=== PATIENT | male | born 1960 | race African-American/Black ===

== ENCOUNTER 2025-07-07 14:10 | Inpatient (IN) | payer OTHER, SELFPAY ==
[2025-07-07] VITALS (9 sets, daily range): BP systolic 107–136; BP diastolic 65–87; BMI 21.5; BMI 21.2
--- NOTE | 2025-07-07 10:32 | ED.GENMED ---
History of Present Illness
General
Chief Complaint: Breathing Problem
Source: patient and family
Exam Limitations: none
Time Seen by Provider: 07/07/25 10:16
Nursing documentation reviewed up to this point in time: agreed with
History of Present Illness
History of Present Illness:
Patient very pleasant 65-year-old Afro-[place] male suffers from sickle cell disease recently moved to the area from [place] he is accompanied by his brother had about a week of cough fatigue fever decreased p.o. intake some nausea shortness of
breath, suffers from congestive heart failure as well,
Past History
Past History
ED Past Medical History: CHF and Other (Sickle cell disease)
Social History
Tobacco: Non-smoker
Alcohol: None
Personal: Single
Living: alone
Employment: Retired
Phy Exam
Physical Exam
Physical Exam:
Physical Exam
General: Ill-appearing male with fever
Neck: Dry lips flat neck veins
Heart: Tachycardic
Lungs: Crackles bilateral
Abdomen: Nontender
Neuro: alert and oriented. no focal neurological deficits
Skin: no rash
Psychiatric: well kept. interactive and cooperative
Extremities: Asymmetric swelling right greater than left
Scores
Heart Failure Risk
Heart Failure Risk Score: Not Applicable
Sepsis
Sepsis Screening
Sepsis Assessment: Sepsis
Sepsis Screen
Sepsis Screen: Sepsis
Date: 07/07/25
Time: 13:02
Course
Orders/Labs/Results
Orders:
Orders
07/07/25 10:10
Electrocardiogram (*1) Urgent
Reason for Study: Tachycardia
EKG- Treatment ONCE
07/07/25 10:17
NT-proBNP Urgent
Comment: ADD
07/07/25 10:23
COVID-19 Antigen Urgent
Source: Nasal Swab
Influenza A+B Rapid Molecular Urgent
ANGELA Source: Nasal Swab
Specimen Description:
07/07/25 10:27
CR Chest Portable - 1 View Urgent
Comment:
Reason For Exam: fever sepsis sickle cell
Reason Study Needs to be Portable: Patient Unstable
07/07/25 10:28
Acetaminophen [Tylenol] 1,000 mg PO NOW STA
CefTRIAXone [Rocephin] 1,000 mg IV NOW STA
O2 Therapy [RESP] Urgent
Titrate/Wean O2 to maintain O2 sat greater than (%): 96
07/07/25 10:32
0.9% Sodium Chloride 1000 ml [Nss] 1,000 ml IV BOLUS
07/07/25 10:45
Add On- LAB Urgent
Tests Added?: Reticulocyte
07/07/25 10:47
Complete Blood Count/With Diff Urgent
Comprehensive Metabolic Panel Urgent
Reticulocyte Count Urgent
Comment: ADD
Blood Culture Q30M
ANGELA Source: Blood/Venous
Specimen Description:
07/07/25 11:03
Blood Culture Q30M
ANGELA Source: Blood/Venous
Specimen Description:
07/07/25 11:05
Add On- LAB Urgent
Tests Added?: pBNP
07/07/25 11:06
Urinalysis Reflex To Culture Urgent
Date Specimen was Collected: 07/07/25
Time Specimen was Collected: 11:04
Urine Microscopic Reflex Cult Urgent
07/07/25 11:47
US Periph Venous LOWER Ext RT Urgent
Comment:
Reason For Exam: swelling
07/07/25 12:32
Admit/Transfer Patient As Directed
Co-Sign Provider:
Level of Care: Inpatient admission
Assign to:: Telemetry
Physician / Group: Hospitalists
Diagnosis: CHF
Reason for Telemetry: Acute Heart Failure
Date to Stop Telemetry: 07/10/25
Time to Stop Telemetry: 11:00
Reason for Hospitalization: Congestive Heart Failure
Expected length of stay greater than two midnights?: Yes
ELOS- Estimated Length of Stay in days: 4
I certify the patient meets the requirements for IP care: Yes
PRN Pain Medication Management As Directed
May give lesser potent ordered pain med per pt: Yes
preference::
Protocol:: Medication orders for pain may be administered in a
manner that supports deferring to patient preference
when the pt is:
- Requesting an ordered lesser potent pain medication.
Least to most potent pain medications are defined
as: acetaminophen < NSAID < tramadol < opioids
(morphine, oxycodone, hydromorphone).
- Requesting a lesser dose of the same medication IF
ORDERED.
- Requesting a less intrusive route of administration
if both routes are prescribed by the provider (PO <
IV).
07/07/25 12:38
Code Status As Directed
Resuscitation Status: Full Code
07/10/25 11:00
DC Protocol for Telemetry ONCE
Abnormal Lab Results
07/07/25 07/07/25
10:47 11:06
RBC 2.58 L 10^6/uL
(4.70-6.10)
Hgb 8.7 L g/dL
(13.0-18.0)
Hct 24.0 L %
(39.0-52.0)
MCH 33.7 H pg
(27.0-31.0)
RDW 23.3 H %
(11.5-14.5)
Abs Immat Gran (auto) 0.1 H 10^3/uL
(0-0.05)
Absolute Neuts (auto) 6.8 H 10^3/uL
(1.4-6.5)
Absolute Lymphs (auto) 0.6 L 10^3/uL
(1.2-3.4)
Immature Gran % 0.6 H %
(0-0.5)
Neutrophils % 86.9 H %
(42.2-75.2)
Lymphocytes % 7.5 L %
(20.5-51.1)
Carbon Dioxide 20 L mmol/L
(22-30)
Total Bilirubin 5.8 H mg/dl
(0.2-1.3)
Total Protein 8.8 H g/dl
(6.3-8.2)
Ur Occult Blood Reflex 3+ A
(Negative)
Urine RBC 3-6 A /HPF
(0-2)
Urine Albumin (Reflex) 3+ A
(Neg - Trace)
07/07/25 10:47
07/07/25 10:47
Vital Signs
Initial and Last Documented VS:
Initial Vital Signs
Temp Pulse Resp BP Pulse Ox
103.2 F H 130 18 129/84 90
07/07/25 10:05 07/07/25 10:05 07/07/25 10:05 07/07/25 10:05 07/07/25 10:05
Last Documented Vital Signs
Temp Pulse Resp BP Pulse Ox
101.8 F H 124 33 120/78 92
07/07/25 11:44 07/07/25 12:00 07/07/25 12:00 07/07/25 12:00 07/07/25 12:00
MDM/Problems Addressed
Differential Diagnosis Includes:
Pneumonia acute chest viral syndrome influenza COVID bacteremia
MDM/Problems Addressed:
Fever shortness of breath
Chronic conditions affecting care:
Sickle cell heart failure
Acute Exacerbation and/or Progression of Chronic Illness:
Sickle cell heart failure
*Radiology
Radiology exam reviewed: preliminary read by ED provider and radiology read reviewed
*Pulse Oximetry
SaO2: 88
Oxygen Mode of Delivery: Room air
Patient hypoxic: yes
*EKG
Interpreted by ED Provider?: Yes
Interpretation: abnormal
Comparison EKG: no comparison EKG present
Heart Rate: 140
Rate: tachycardiac
Rhythm: sinus
Ischemia: non-specific ST changes
*Junior Systems Administrator Interpretation
Rate: tachycardiac
Interpretation: abnormal
Heart Rate: 140
Rhythm: sinus
*Critical Care Note
Total Time (30-74mins, 75-104mins- exclusive of procedures): 30
Update Note
Update Note:
1130 update patient looks better chest x-ray noted suspect this is infectious with a high fever concomitant heart failure is possible, does have asymmetric swelling of lower extremities, will check Doppler
Message sent to hospitalist will require admission
ED Attending Note
-
Portions of this chart may have been created with voice recognition software.� Occasional wrong word or��sound alike� substitutions may have occurred due to the inherent limitations of voice recognition software.
Discharge Plan
Departure
Patient Disposition: Admit
Date of Disposition: 07/07/25
Time of Disposition: 11:55
Admit to: Telemetry
Presentation/result/management discussed w/ accepting MD/DO: Hospitalist
Patient with high blood pressure during this ER visit?: No
Condition: Fair
Covid-19: Negative COVID-19
Discharge Problem:
Sepsis, Sickle cell anemia
Prescriptions:
No Action
spironolactone 25 mg Tablet
25 mg PO DAILY
ascorbic acid (vitamin C) [Vitamin C] 500 mg Tablet
500 mg PO DAILY
tamsulosin [Flomax] 0.4 mg Capsule
0.4 mg PO QPM
levothyroxine [Synthroid] 125 mcg Tablet
125 mcg PO DAILY
furosemide [Lasix] 20 mg Tablet
20 mg PO DAILY
cholecalciferol (vitamin D3) [Vitamin D3] 25 mcg (1,000 unit) Tablet
25 mcg PO DAILY
ferrous sulfate 324 mg (65 mg iron) Tablet,Delayed Release (Dr/Ec)
324 mg PO DAILY
Referrals:
NONE,* [Family Provider, Internal Medicine]
Interventions
Interventions:
*Risk Screen - Suicide Last Done: 07/07/25 10:05
*General Assessment Last Done: 07/07/25 10:05
*Neglect/Abuse Screening Last Done: 07/07/25 10:05
*ED COVID-19 Vaccine History Last Done: 07/07/25 10:20
ED- Cardiac Assessment Last Done: 07/07/25 11:43
ED- Pulmonary Assessment Last Done: 07/07/25 11:43
Discharge Date and Time
Print Language: TURKISH
[2025-07-07] MEDS: TYLENOL 1000 MG PO (10:35)
[2025-07-07 10:46] LABS: COVID-19 Antigen Negative (Negative)
[2025-07-07] MEDS: NSS 1000 IV (10:50)
[2025-07-07] MEDS: ROCEPHIN 1000 MG IV (11:08)
[2025-07-07 11:16] LABS: Urine Character Clear (Clear)
[2025-07-07 11:23] LABS: Hematocrit 24.0 % (39.0-52.0); Hemoglobin 8.7 g/dL (13.0-18.0); Mean Corp Hgb Conc. 36.3 g/dL (33.0-37.0); Mean Corpuscular Volume 93.0 fL (80.0-94.0); Nucleated Red Blood Cells % 3.8 % (-); Platelet Count 259 10^3/uL (130-400); Red Cell Dist. Width 23.3 % (11.5-14.5)
[2025-07-07 11:42] LABS: ALT (SGPT) 22 U/L (0-50); AST (SGOT) 45 U/L (17-59); Albumin 4.1 g/dl (3.5-5.0); Alkaline Phosphatase 104 U/L (38-126); Blood Urea Nitrogen 16 mg/dl (9-20); Calcium 8.5 mg/dl (8.4-10.2); Carbon Dioxide 20 mmol/L (22-30); Chloride 107 mmol/L (98-107); Estimated Creatinine Clearance 75 ml/min; Glucose 89 mg/dl (70-99); Potassium 5.1 mmol/L (3.5-5.1); Sodium 135 mmol/L (135-145); Total Protein 8.8 g/dl (6.3-8.2); eGFR > 60.00
[2025-07-07 12:14] LABS: Urine White Cell 0-2 /HPF (0-5)
[2025-07-07 13:31] LABS: Anisocytosis 2+; Hypochromasia 2+; Macrocytosis 1+; Normal RBC Morphology No; Target Cells 1+
[2025-07-07 13:32] LABS: Ovalocytes 2+; Sickled Red Blood Cells 1+
[2025-07-07 14:02] LABS: Reticulocyte Count 12.7 % (0.4-2.8)
--- NOTE | 2025-07-07 14:46 | EDRN ---
Report tubed 406-1.
--- NOTE | 2025-07-07 14:55 | HPS.HSE ---
Addendum entered and electronically signed by Rosas Haywood MD 07/07/25 21:57:
Attending Addendum-
I performed a history and physical exam of the patient and discussed his management with the resident. I reviewed the resident's note and agree with the documented findings and plan of care CC/HPI- Came to ED due to worsening SOB and ZAPIEN. Patient
denies CP palps. Recently moved here from [place]. Has not established care yet. Has been having cough fatigue fevers chills urinary sxs. In ED sepstic, given IVF and abx. Full 12 point ROS reviewed and negative except as documented Exam- vitals
reviewed in EMR GEN-fatigued falling asleep HEENT scleral icterus CV RRR no MRG Lungs crackles at abses abd soft distended pos fluid wave LE +1 pitting edema B/L
Plan:
# Sepsis from CAP likely
- hold on IVF due to volume overload and stable BP
- given 1 liter in ED
- start Rocephin/Doxy
- check lactate blood cx
- check CT chest/abd/pevis
# Hyperbilirubinemia
- CTM
# Sickle Cell Disease/Crisis
- watch for acute chest syndrome - low threshold for transfusion / exchange transfusion if needed
- obtain records
- retic count elevated
- exacerbated by infection
- avoid IVF due to vol overload
- pain control
- cont O2
- start IS
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
# Acute Hypoxemic Resp failure
- r/o PE check CT
- cont supp 02 wean for sats > 92
# AE CHF
- unknown type
- check echo, check trops
- hold spironolactone
- IV lasix x 1 monitor strict I and O, daily weights
- check BMP in am
# Hypothyroid- check TSH, cont levo
# BPH- cont flomax
DVTp-lovenox
CODE-FULL
ACP
Patient consented to discuss, was alone, time spent explanation of advance directives, changes in health status, patient�s health care wishes if the patient becomes unable to make health decisions, goals of care, code status, and prognosis- 16
minutes
Time spent coordinating care, review of plan of care with resident, personally reviewed previous records in EMR, med rec, labs, radiology, d/w nursing, total time documented is exclusive of any additional time listed that was spent in advance care
planning discussion -�76 minutes
Original Note:
Family Physician
-
Family Physician: * NONE
Chief Complaint
-
Shortness of breath
History of Present Illness
Mr. Santoyo is a 65-year-old male with history of sickle cell disease, CHF, and hypothyroidism who presented to the ED with shortness of breath at rest ongoing for 1 week and worsening. He also has a chronic cough that he states has worsened in this
time period. He reports 1 episode of watery emesis last evening and intermittent nausea since then. He states that this happened once before however cannot remember when. He reports that this is different from his sickle cell crisis pain, which
he last had a month ago. He denies pain of any kind, urinary symptoms, bowel changes, chills, recent infection, or changes in medicine. He states that he recently moved from [place] via [facility] and does not have a PCP nor specialist in the area.
His POA is his brother Gregor.
Medical History
Past Medical History
Past Medical History: Reports CHF, Hypothyroidism and Other (Sickle Cell Disease)
Past Surgical History: Reports None
Social History
Tobacco: Non-smoker
Alcohol: None
Drug: None
Family History
Family History: Not pertinent
Allergies / Home Medications
Allergies reflects when Allergies were last updated in [employer].
Home Medications with original date entered in [employer]
Allergy/Medication List:
Allergies
Allergy/AdvReac Type Severity Reaction Status Date / Time
No Known Allergies Allergy Unverified 09/24/25 10:05
Home Medications
ascorbic acid (vitamin C) 500 mg tablet (Vitamin C) 500 mg PO DAILY 07/07/25
cholecalciferol (vitamin D3) 25 mcg (1,000 unit) tablet (Vitamin D3) 25 mcg PO DAILY 07/07/25
ferrous sulfate 324 mg (65 mg iron) tablet,delayed release 324 mg PO DAILY 07/07/25
furosemide 20 mg tablet (Lasix) 20 mg PO DAILY 07/07/25
levothyroxine 125 mcg tablet (Synthroid) 125 mcg PO DAILY 07/07/25
spironolactone 25 mg tablet 25 mg PO DAILY 07/07/25
tamsulosin 0.4 mg capsule (Flomax) 0.4 mg PO QPM 07/07/25
Review of Systems
-
A 12 point ROS was completed and negative except as noted: Yes
Constitutional: Reports Fever and Fatigue
Respiratory: Reports Cough and Trouble Breathing
Physical Exam
Vital Signs
Vital Signs
Temp Pulse Resp BP Pulse Ox
99.5 F 117 31 112/79 92
07/07/25 13:21 07/07/25 13:16 07/07/25 13:16 07/07/25 13:16 07/07/25 12:00
Physical Exam
General: Well Developed, Well Nourished, Respiratory Distress and Appears in Distress
HEENT: NormoCephalic, Moist mucous membranes, Atraumatic and Other (Scleral icterus)
Respiratory: Rales and Crackles
Cardiac: Tachycardia
GI: Soft, Non Tender and Distended
Musculoskeletal: Clubbing
Skin: Warm and Dry
Neuro: AO x 3
Psych: Anxious
Laboratory Results
-
07/07/25 10:47
07/07/25 10:47
Laboratory Results
Total Bilirubin 5.8 mg/dl (0.2-1.3) H 07/07/25 10:47
AST 45 U/L (17-59) 07/07/25 10:47
ALT 22 U/L (0-50) 07/07/25 10:47
Alkaline Phosphatase 104 U/L (38-126) 07/07/25 10:47
Impression/Plan
-
IMPRESSION: Mr. Santoyo is a 65-year-old male with history of sickle cell disease, CHF, and hypothyroidism who presented to the ED with shortness of breath at rest ongoing for 1 week and worsening, concerning for acute HG excarebation. His POA is his
brother Gregor. Mr. Sanotyo recently moved from [place] and has not established care in the area. In the ED, he was febrile up to 103.2F, tachycardic (130s), and tachypneic (30s). He was given 1 dose of ceftriaxone, 1 L fluid, and placed on 3L nasal
cannula (no home O2 at baseline). He was admitted to the hospitalist team for further management workup.
CXR 07/07:
Vascular markings appear prominent, most suspicious for interstitial pulmonary edema.
Peripheral vascular ultrasound 07/07:
No sonographic evidence for right lower extremity deep venous thrombosis.
PLAN:
#Shortness of breath
#Acute on chronic HF
#History of sickle cell disease
We do not have access to patient's records from [place]. CXR as above. Crackles present on exam bilaterally. proBNP 5260. Patient's history and symptoms put him at high risk of PE.
- Wean oxygen as tolerated
- Trend troponin every 6 hours x 4
- Hold home Lasix 20 mg and spironolactone 25 mg
--IV Lasix 40 mg x 1 07/07
- CT chest A/P
- Echo
#Sepsis of unknown etiology
#Vomiting
#Cough
Patient is febrile, tachycardic, tachypneic. He had 1 episode of emesis last night. Currently asymptomatic from a GI standpoint. Endorses a chronic cough that is now worse and productive. UA pertinent for albumin, some WBC, and blood otherwise
unremarkable.
- Lactate, Legionella, LFT
- Follow-up blood cultures
- COVID and flu negative
- Start IV ceftriaxone 1000 mg and doxycycline 100 mg twice daily
- CT chest A/P
#Hypothyroidism
- TSH with free T4
- Continue home levothyroxine 125 mcg
Diet: Cholesterol-lowering
CODE STATUS: Full
[2025-07-07] MEDS: LASIX 20 MG IV (16:24)
[2025-07-07 16:38] LABS: ALT (SGPT) 20 U/L (0-50); AST (SGOT) 40 U/L (17-59); Albumin 3.7 g/dl (3.5-5.0); Alkaline Phosphatase 91 U/L (38-126); Magnesium 1.8 mg/dl (1.6-2.3); Total Protein 8.1 g/dl (6.3-8.2)
[2025-07-07] MEDS: FLOMAX 0.4 MG PO (17:37)
[2025-07-07] MEDS: LOVENOX 40 MG SC (17:37)
[2025-07-07] MEDS: VIBRAMYCIN 100 MG PO (19:44)
[2025-07-07 19:46] LABS: Troponin I 0.038 ng/ml
[2025-07-07 23:24] LABS: Troponin I 0.036 ng/ml
[2025-07-08] VITALS (8 sets, daily range): BP systolic 102–121; BP diastolic 56–77; BMI 20.7
[2025-07-08 05:01] LABS: Procalcitonin 1.15 ng/ml (0.0-0.25)
[2025-07-08 05:08] LABS: Troponin I 0.032 ng/ml
[2025-07-08] MEDS: SYNTHROID 125 MCG PO (06:04)
[2025-07-08] MEDS: VITAMIN D3 (cholecalciferol) 25 MCG PO (07:51)
[2025-07-08] MEDS: VITAMIN C 500 MG PO (07:51)
[2025-07-08] MEDS: VIBRAMYCIN 100 MG PO ×2 (07:51→20:00)
[2025-07-08 08:26] LABS: ALT (SGPT) 20 U/L (0-50); AST (SGOT) 39 U/L (17-59); Albumin 3.2 g/dl (3.5-5.0); Alkaline Phosphatase 79 U/L (38-126); Blood Urea Nitrogen 17 mg/dl (9-20); Calcium 7.9 mg/dl (8.4-10.2); Carbon Dioxide 22 mmol/L (22-30); Chloride 108 mmol/L (98-107); Estimated Creatinine Clearance 80 ml/min; Glucose 93 mg/dl (70-99); Potassium 4.6 mmol/L (3.5-5.1); Sodium 135 mmol/L (135-145); Total Protein 7.5 g/dl (6.3-8.2); eGFR > 60.00
[2025-07-08 08:34] LABS: Hematocrit 21.0 % (39.0-52.0); Hemoglobin 7.7 g/dL (13.0-18.0); Mean Corp Hgb Conc. 36.7 g/dL (33.0-37.0); Mean Corpuscular Volume 92.9 fL (80.0-94.0); Nucleated Red Blood Cells % 2.4 % (-); Platelet Count 254 10^3/uL (130-400); Red Cell Dist. Width 21.9 % (11.5-14.5)
--- NOTE | 2025-07-08 09:44 | W.PN.HOSP.TC ---
Addendum entered and electronically signed by Rosas Haywood MD 07/08/25 20:49:
Attending Addendum-I saw and evaluated the patient. I reviewed the resident�s note and agree with findings and plan as documented in the resident�s note. Sub: drowsy, sleeping on entry to room but flat affect. States still SOB but improved. No abd
pain NV CP palps fevers chill. Full 12 point ROS reviewed and negative except as documented Exam- vitals reviewed in EMR GEN-fatigued HEENT scleral icterus CV RRR no MRG Lungs crackles at bases abd soft distended hepatomegaly, neg McBurney point neg
Rovsing sign LE +1 pitting edema B/L
Plan:
# Sepsis from CAP likely
- given 1 liter in ED
- cont Rocephin/Doxy
- blood cx NGTD
- CT chest/abd/pelvis- no PE, hepatomegaly, mild free fluid in paracolic gutter
# Hyperbilirubinemia
- trending down
- CT with hepatomegaly- LFT's WNL
- indirect- likely hemolyzing check LDH hptoglobin
- c/s heme
# Sickle Cell Anemia / acute on chronic anemia
- tx for HB < 8 - transfuse 1 unit prbc 07/08
- obtain prior records
- retic count elevated
- exacerbated by infection
- avoid IVF due to vol overload
- pain control
- cont O2 prn for sats < 92%
- cont IS
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
- heme c/s
# Hepatomegaly
- cheoininc LFT's WNL
- check ammonia
- f/u as OP with MRI vs US elastography and GI
- FIB-4 unreliable due to SSD
# Acute Hypoxemic Resp failure
- from CHF
- lasix IV x 1
- cont supp 02 wean for sats > 92
# AE HFmrEF, NIMI
- trops trending down
- echo 07/08-Mildly reduced systolic function. Hypokinesis of the septal hernandez. Ejection fraction is 44%
- restart spironolactone in am
- start SGLT2i during hospitalization
- additional IV lasix x 1, monitor strict I and O, daily weights
- c/s cards
- check BMP in am
# Hypothyroid- TSH-WNL, cont levothyroxine
# BPH- cont flomax
DVTp-lovenox
CODE-FULL
Time spent coordinating care, review of plan of care with resident, personally reviewed records in EMR, med rec, consults, notes, labs, radiology, d/w nursing,cards � 52 mins
Original Note:
Today's Communication/Plan
-
IV Lasix 20 mg x 1
Continue antibiotics
Follow-up echo
1u pRBC
Assessment / Plan
Assessment / Plan
Mr. Santoyo is a 65-year-old male with a history of sickle cell disease, CHF, and hypothyroidism who presented to the ED with shortness of breath at rest ongoing for 1 week and worsening, concerning acute HG exacerbation. His POA is his brother
Gregor. Mr. Santoyo recently moved from [place] and has not established care in the area.� In the ED, he was febrile up to 103.2F, tachycardic (130s), and tachypneic (30s).� He was given 1 dose of ceftriaxone, 1 L fluid, and placed on 3L nasal cannula (no
home O2 at baseline).� He was admitted to the hospitalist team for further management workup.
CXR 07/07:
Vascular markings appear prominent, most suspicious for interstitial pulmonary edema.
Peripheral vascular ultrasound 07/07:
No sonographic evidence for right lower extremity deep venous thrombosis.
Abdomen/pelvis CT with chest PE study 07/07:
Nonvisualization of the appendix. Mild free fluid in the right paracolic gutter. Acute appendicitis cannot be excluded. Clinical and laboratory correlation recommended.
Mild AP window and bilateral groin lymphadenopathy. Nonspecific.
Small right pleural effusion.
Mild cardiomegaly
Moderate hepatomegaly. Heterogeneous appearance of the liver. This may be due to the phase of enhancement. Hepatocellular disease cannot be excluded. This would better be evaluated by MRI examination indicated clinically.
Too small to characterize hypodense right renal lesion likely a benign cyst.
Mild diffuse bladder wall thickening. This can be seen with cystitis or bladder outlet obstruction.
Mild prostate hypertrophy
PLAN:
#Acute Hypoxemic Respiratory Failure
#Acute on chronic HF
We do not have access to patient records from [place]. Will attempt to obtain.� CXR as above.� Crackles present on exam bilaterally.� proBNP 5260.�
- From 3L NC to 2L NC: Wean oxygen as tolerated
- Troponins: 07/07 0.038, 0.036, 0.032, every 6 hours trending
- Hold home Lasix 20 mg and spironolactone 25 mg
--IV Lasix 20 mg x 1 07/07 --PO
--Redose again with IV Lasix 20 mg x 1 07/08
- CT C/A/P as above
- Follow-up echo
#History of sickle cell disease
- Hem consult
- Refer to residency clinic
- Hgb 7.7, transfuse 1u pRBC -- transfuse for <8
#Sepsis of unknown etiology
#Vomiting
#Cough
Patient is febrile, tachycardic, tachypneic.� He had 1 episode of emesis on 07/06.� Currently asymptomatic from a GI standpoint.� Endorses a chronic cough that is now worse and productive.� UA pertinent for albumin, some WBC, and blood otherwise
unremarkable.
- s/p 1L IVF in ED; hold for volume overload
- Procalcitonin 1.15
- Lactate, Legionella, LFT
- Follow-up blood cultures
- COVID and flu negative
- IV ceftriaxone 1000 mg and doxycycline 100 mg twice daily
- CT C/A/P as above
#Hypocalcemia
#Hypoalbuminemia
Calcium 7.9 and albumin 3.2 on 07/08. Corrected calcium 8.1.
- CTM
#Hyperbilirubinemia
- CTM
#Hypothyroidism
- TSH 2.8
- Continue home levothyroxine 125 mcg
#BPH
- Continue Flomax
Diet: Cholesterol-lowering
CODE STATUS: Full
DVT prophylaxis: Lovenox 40 mg SC
Anticipated Discharge: 24 - 48 hours
Subjective/Interval History
-
Date of Service: July 08, 2025
-This morning, he is sitting up in bed on 2L NC eating breakfast. He reports feeling much better than yesterday and being able to lie flat for longer, however still feels SOB and that he has some fluid in his belly. He denies pain and any new
symptoms. He reports he previously got all his care at the [place] in [facility] with Dr. Church.
Objective Data
-
Labs:
Laboratory Results
07/08/25
07:40
WBC 5.1
Hgb 7.7 L
Hct 21.0 L
Plt Count 254
Sodium 135
Potassium 4.6
Chloride 108 H
Carbon Dioxide 22
BUN 17
Creatinine 0.9
Glucose 93
Calcium 7.9 L
Total Bilirubin 4.0 H
AST 39
ALT 20
Alkaline Phosphatase 79
Vital Signs:
Vital Signs
Temp Pulse Resp BP Pulse Ox
98.6 F 93 18 102/73 100
07/08/25 07:54 07/08/25 07:54 07/08/25 07:54 07/08/25 07:54 07/08/25 07:54
I&O
07/07/25 07/08/25 07/09/25
06:59 06:59 06:59
Intake Total 240 / 240
Output Total 725 / 725 875 / 875
Balance -485 / -485 -875 / -875
Review of Systems
-
History Source: Patient
All other systems: Reviewed and negative
Constitutional: Reports Fatigue and Weakness
Respiratory: Reports Trouble Breathing
Physical Exam
-
General: Well Nourished, No Apparent Distress, Conversant and Appears Chronically Ill
HEENT: Normocephalic, Atraumatic and Moist Mucous Membranes
Respiratory: Crackles
Cardiac: Regular Rhythm and S1/S2
GI: Soft and Distended
Musculoskeletal: Clubbing
Skin: Warm and Dry
Neuro: AO x 3
[2025-07-08 10:41] LABS: Troponin I 0.030 ng/ml
--- NOTE | 2025-07-08 10:42 | CM ---
Addendum entered by Bety Rodriguez 07/08/25 12:56:
IA completed
Original Note:
Reviewed chart. Met with pt bedside.IMM given in Admissions 07/07/25. Lives alone in a single story Condo with no steps to the entrance or in home. BR on 1st floor. Independent in ADLs and IADLs. NO hx ofHC, O2, DME or SNF. No insecurities
identified. Confirmed PCP, Rx, insurance and drug coverage.
97% on room air.
PCP- none, resources given
Rx: [facility] [place]
Plan: Home, no needs
[2025-07-08] MEDS: ROCEPHIN 1000 MG IV (12:04)
[2025-07-08] MEDS: STERILE WATER FOR INJECTION 10 ML IV (12:04)
[2025-07-08] MEDS: LASIX 20 MG IV (12:05)
--- NOTE | 2025-07-08 14:47 | CON.CAR ---
Addendum entered and electronically signed by Pete Arias MD 07/08/25 17:13:
I saw and examined the patient.
The UTILITY LINEMAN's note was reviewed and I agree with the note.
65-year-old male with history of sickle cell disease, CHF and hypothyroidism who presented to the hospital with shortness of breath and was noted to have hypoxemia fever up to 103. . Labs noted for severe anemia. Chest x-ray suggested mild
interstitial edema and patient has received diuretic for treatment of heart failure. Patient provides limited history. Recently relocated from [facility]. In discussion with him it sounds as if he has had CHF before and may have been told
that he had a weaker heart. Denies having history of coronary artery disease, coronary stenting or previous cardiac catheterization. He has had no chest pain. Initial ECG with heart rate of 129 read as SVT but I suspect may be sinus tachycardia
with first-degree AV block and small P waves within the T wave. Follow-up ECG sinus rhythm with heart rate in the 90s and first-degree AV block. Patient has anterior T wave inversions and prolonged QT. Patient is not aware of any prior ECG
abnormalities. He reports having a hospitalization 3 weeks ago in [place] during which he presented similarly with shortness of breath. Patient currently comfortable on 2 L nasal cannula. Laying flat. Lungs without wheezing or rhonchi rare
crackle right base.
Echo 07/08/25: Mildly reduced systolic function. Hypokinesis of the septal hernandez. Ejection fraction is 44%. Right ventricular cavity size is moderately dilated with preserved systolic function. Moderate MR. Mild AR. Moderate to severe TR. Estimated
PASP [address] PE protocol and CT abdomen pelvis. No evidence of pulmonary embolism small right pleural effusion. No significant parenchymal airspace disease moderate hepatomegaly
- Shortness of breath may be multifactorial. Acute chest syndrome related to sickle cell is being considered. Other contributing factors may include fever/infection severe anemia and acute on chronic left heart failure.
- Continue diuresis with IV Lasix as ordered with caution not to overdiuresis
- Additional treatment of anemia/PRBCs as directed by primary team.
- Antibiotics as directed by primary team
-hematology consult for sickle cell.
Fever. Continue antibiotics and monitor cultures.
HFmrEF. Suspect acute on chronic left heart failure Appears patient has prior history of heart failure and may have prior history of cardiomyopathy. Previous records not available. He had a hospitalization in [facility] 3 weeks ago and
was previously seeing radiopharmacist at the [place], [place]. recent echo as noted. EF 44%.
- Continue Lasix
- Patient had been on spironolactone as outpatient would consider restart but will review with primary team
- Continue to assess GDMT
Abnormal ECG. Patient with sinus rhythm with first-degree AV block anterior T wave abnormality and prolonged QT. Currently without symptoms to suggest angina.
-Will obtain previous records and previous ECGs
Abnormal troponin. Acute nonischemic injury secondary to acute illness versus type II secondary to anemia and hypoxemia presentation.
Prolonged QT. Avoid meds that prolong QT
Anemia. Patient with sickle cell. Hemoglobin down to 7.7 currently receiving PRBC
- Additional treatment as directed by primary team and hematology
Sickle cellheatology consulted .
Original Note:
Consultation
Consultation Request
Date/Time Consultation Requested: 07/08/25 1439
Date/Time Consultation Performed: 07/08/25 1450
Requesting Provider: Dr. Haywood
Performing Provider: Abbie SUERO for Dr. Arias
Reason for Consultation: CHF
Medical History
-
Chief Complaint: SOB
History of Present Illness:
65 male with sickle cell disease, CHF (type unknown- he thinks he was told his heart was weak though), prostate enlargement, and hypothyroidism. He had a radiopharmacist in [facility] in [place], where he moved from 1 week ago. He has not seen them in
a while. He has been hospitalized multiple times this year; most recently about 3 weeks ago with similar symptoms- [facility] in [place], [place]- will request records. 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
stents, arrhythmia. He is here for evaluation of SOB x 1 week. On arrival, his temp was 103.2. He is admitted and is being treated for suspected PNA. O2 sat as low as 88%- he is on O2 by [place]. Prior to coming in, he denies fever. He is also being
treated for zbdoc-ki-hdiwxzy HF (type unknown) and has been given lasix. He is also being treated for anemia with PRBC's. Heme is consulted as well. He is in no distress at the time of my assessment. EKG shows tachycardia 129 BPM- AT versus ST on my
review of EKG and telemetry. Now in SR in ; He appears to have a 1st degree AVB. Repeat EKG is pending.
Past Medical History
Past Medical History: CHF, Hypothyroidism and Other (as above)
Social History
Tobacco: Non-Smoker
Alcohol: None
Family History
Family History: Reviewed & Not Pertinent
Allergies / Home Medications
Allergy/AdvReac Type Severity Reaction Status Date / Time
No Known Allergies Allergy Unverified 07/07/25 10:05
�Medication �Instructions �Recorded �Confirmed �Type
ascorbic acid (vitamin C) 500 mg 500 mg PO DAILY Supplement 07/07/25 07/07/25 History
tablet (Vitamin C)
cholecalciferol (vitamin D3) 25 25 mcg PO DAILY Supplement 07/07/25 07/07/25 History
mcg (1,000 unit) tablet (Vitamin
D3)
ferrous sulfate 324 mg (65 mg 324 mg PO DAILY Supplement 07/07/25 07/07/25 History
iron) tablet,delayed release
furosemide 20 mg tablet (Lasix) 20 mg PO DAILY Fluid 07/07/25 07/07/25 History
Retention/Swelling
levothyroxine 125 mcg tablet 125 mcg PO DAILY Thyroid 07/07/25 07/07/25 History
(Synthroid)
spironolactone 25 mg tablet 25 mg PO DAILY Fluid 07/07/25 07/07/25 History
Retention/Swelling
tamsulosin 0.4 mg capsule (Flomax) 0.4 mg PO QPM Urinary Issue 07/07/25 07/07/25 History
Review of Systems
-
History Source: Patient
All other systems: Negative unless noted
Constitutional: Fever (in hospital)
Respiratory: Trouble Breathing
Physical Exam
Vital Signs
Temp Pulse Resp BP Pulse Ox
98.6 F 97 18 116/77 97
07/08/25 14:15 07/08/25 14:15 07/08/25 14:15 07/08/25 14:15 07/08/25 11:41
Lab Results
07/08/25 07:40
07/08/25 07:40
Troponin I 0.030 ng/ml 07/08/25 09:55
Pbt-X-Ippdujrixog Pept 5260 pg/ml 07/07/25 10:17
Physical Exam
General: Well Developed, Well Nourished and No Apparent Distress
HEENT: Normocephalic
Respiratory: Crackles (b/l bases) and Other (on O2 by NC)
Cardiac: Regular Rhythm
Musculoskeletal: No Edema
Skin: Warm and Dry
Neuro: AO x 3
Psych: Calm
Impression / Plan
-
SOB:
-likely multifactorial- poss PNA, anemia, cqmry-ci-grfmxbj HFmEF, atelectasis
-on IV ABX, s/p IV Lasix, and on O2 by NC
Cardiomyopathy, type unknown, ynlev-jh-agjpmrt HFmEF:
-Echo 07/08/25: Mildly reduced systolic function. Hypokinesis of the septal hernandez. Ejection fraction is 44%. Right ventricular cavity size is moderately dilated with preserved systolic function. Moderate MR. Mild AR. Moderate to severe TR. Estimated
PASP 53 mmHg.
-request previous records to see if previous ischemic eval and what baseline echo shows
-on Aldactone as OP, but currently held by primary team. Assess for GDMT as able this admit.
-monitor volume. He received IV lasix today and yesterday. Avoid overdiuresis.
Abnormal EKG:
-we do not have baseline- request records
-no CP
-avoid QTC prolonging agents
Sickle Cell Disease:
-management per primary
-heme consulted
Anemia:
-currently getting PRBC
-monitor
Abnormal troponin:
-acute, non-ischemic myocardial injury in setting of acute illness as above
-no CP
Data Reviewed
-
EKG: Tracing Personally Visualized and interpreted (SVT 129 BPM, ST and T abnormality)
Radiology: Report Reviewed by me (CXR: Vascular markings appear prominent, most suspicious for interstitial pulmonary edema.)
Medical Tests (Nuc Med, Echo etc): Report Reviewed by me (Echo 07/08/25: Mildly reduced systolic function. Hypokinesis of the septal hernandez. Ejection fraction is 44%. Right ventricular cavity size is moderately dilated with preserved systolic
function. Moderate MR. Mild AR. Moderate to severe TR. Estimated PASP 53 mmHg.)
Labs: Labs Reviewed by me
[2025-07-08] MEDS: FLOMAX 0.4 MG PO (16:48)
[2025-07-08] MEDS: LOVENOX 40 MG SC (16:59)
[2025-07-08 20:25] LABS: Hemoglobin 8.6 g/dL (13.0-18.0)
[2025-07-08] MEDS: MELATONIN 5 MG PO (23:44)
[2025-07-09] VITALS (7 sets, daily range): BP systolic 100–123; BP diastolic 66–78; PULSE 91; O2SAT 100; BMI 20.7
[2025-07-09] MEDS: SYNTHROID 125 MCG PO (05:33)
[2025-07-09 08:10] LABS: Hematocrit 22.4 % (39.0-52.0); Hemoglobin 8.3 g/dL (13.0-18.0); Mean Corp Hgb Conc. 37.1 g/dL (33.0-37.0); Mean Corpuscular Volume 91.4 fL (80.0-94.0); Nucleated Red Blood Cells % 2.1 % (-); Platelet Count 244 10^3/uL (130-400); Red Cell Dist. Width 21.6 % (11.5-14.5)
[2025-07-09 08:17] LABS: INR 1.30; PT 16.4 Sec (11.4-14.6)
[2025-07-09 08:20] LABS: Ammonia 16 umol/L (9-30)
[2025-07-09 08:50] LABS: ALT (SGPT) 20 U/L (0-50); AST (SGOT) 39 U/L (17-59); Albumin 3.4 g/dl (3.5-5.0); Alkaline Phosphatase 83 U/L (38-126); Blood Urea Nitrogen 16 mg/dl (9-20); Calcium 8.0 mg/dl (8.4-10.2); Carbon Dioxide 24 mmol/L (22-30); Chloride 108 mmol/L (98-107); Estimated Creatinine Clearance 103 ml/min; Glucose 93 mg/dl (70-99); LDH 423 U/L (120-246); Potassium 4.7 mmol/L (3.5-5.1); Sodium 137 mmol/L (135-145); Total Protein 7.7 g/dl (6.3-8.2); eGFR > 60.00
--- NOTE | 2025-07-09 08:52 | W.PN.CD ---
Today's Communication / Plan
-
IV lasix 20mg x1 today, and re-assess in AM
start Toprol XL 25mg bid
resume home aldactone
Impression / Plan
-
SOB:
-likely multifactorial- poss PNA, anemia, eujha-ye-caxcncf HFmEF, atelectasis
-severe, requiring hospitalization, and close monitoring of labs/tle
-PNA per hospitalist
Cardiomyopathy, type unknown, with grqbj-ji-ldguffv HFmEF:
-Echo 07/08/25: Mildly reduced systolic function. Hypokinesis of the septal hernandez. Ejection fraction is 44%. Right ventricular cavity size is moderately dilated with preserved systolic function. Moderate MR. Mild AR. Moderate to severe TR. Estimated
PASP 53 mmHg.
-IV lasix 20mg x1 today, and re-assess in AM
-close monitoring of labs/tele
-start Toprol XL 25mg bid
-resume home aldactone
-assess for entresto, SGLT2i based on BP, Cr trend
-awaiting records for prior LVEF, and prior ischemic evaluation
Valvular HD:Moderate MR. Mild AR. Moderate to severe TR. Estimated PASP 53 mmHg.
-diuresis as above
Mildly prolonged QT
-avoid QTC prolonging agents
Sickle Cell Disease:
-management per primary
-heme consulted
Anemia:
-s/p PRBC
-monitor
Abnormal troponin:
-acute, non-ischemic myocardial injury in setting of acute illness as above
-no CP
Physical Exam
Vital Signs/Labs
Vital Signs
Temp Pulse Resp BP Pulse Ox
98 F 92 20 120/75 90
07/09/25 07:00 07/09/25 07:00 07/09/25 07:00 07/09/25 07:00 07/09/25 07:00
07/08/25 07/09/25 07/10/25
06:59 06:59 06:59
Actual Weight 71.299 kg 70.987 kg
07/09/25 07:47
07/09/25 07:47
PT 16.4 Sec (11.4-14.6) H 07/09/25 07:47
INR 1.30 07/09/25 07:47
Magnesium 1.8 mg/dl (1.6-2.3) 07/07/25 16:03
07/07/25
10:17
Ecf-M-Wuwlgzjvlpc Pept 5260
LAB Results
07/07/25 07/07/25 07/07/25
16:03 21:37 22:45
Troponin I 0.038 H* Cancelled 0.036 H*
07/08/25 07/08/25
04:15 09:55
Troponin I 0.032 0.030
Physical Exam
Constitutional: No acute distress
EENT: Moist mucous membranes
Cardiovascular: Rhythm & rate is regular, Pedal edema present, JVD present and Systolic murmur present
Respiratory: Respiratory effort normal and Lungs clear to auscul.
Neuro/Psych: AO x 3
Data Reviewed
-
Date of Service: July 09, 2025
EKG: Other (Tele: SR 90s)
[2025-07-09] MEDS: VITAMIN D3 (cholecalciferol) 25 MCG PO (10:03)
[2025-07-09] MEDS: VITAMIN C 500 MG PO (10:03)
[2025-07-09] MEDS: VIBRAMYCIN 100 MG PO ×2 (10:03→20:28)
[2025-07-09] MEDS: TOPROL XL 25 MG PO ×2 (10:06→20:28)
[2025-07-09] MEDS: ALDACTONE 25 MG PO (10:06)
[2025-07-09] MEDS: FLUSH (NSS) 3 FLUSH IV (10:08)
[2025-07-09] MEDS: LASIX 20 MG IV (10:08)
[2025-07-09] MEDS: ROCEPHIN 1000 MG IV (10:08)
[2025-07-09] MEDS: STERILE WATER FOR INJECTION 10 ML IV (10:09)
--- NOTE | 2025-07-09 11:44 | CON.ONC ---
Documented by User: Emmett Lazaro MD, Resident 07/09/25 14:47
Consultation
-
Date Consultation Requested: 07/08/25
Date Consultation Performed: 07/09/25
Requesting Provider: Dr. Radha Toro
Performing Provider: Dr. Emmett Lazaro; Dr. Andrew Contreras
Reason for Consultation: Sickle cell disease with C/F acute chest syndrome
Impression
Impression
Patient is a 65-year-old male with past medical history of sickle cell disease who presented to the [facility] ED with shortness of breath, F/F/C, and cough. On presentation, patient was febrile, tachycardic, tachypneic, and hypoxic with lab findings
during the hospital course of normocytic anemia (Hgb 8.7, MCV 93), reticulocytosis (12.7%), elevated RDW (23.3%), and hyperbilirubinemia (TBili 5.8, primarily indirect) concerning for possible sepsis with superimposed sickle cell crisis.
Hematology-oncology was consulted for concern of acute chest syndrome.
Clinical
- Currently mildly short of breath, improving
- No pain (chest, abdominal, extremities), no stroke symptoms, no priapism
Labs
- Hgb 8.3 today, stable s/p 1 unit PRBCs 07/08; LDH 423; RDW 21.6; T. bili 4.5, downtrending; haptoglobin pending
- Suspect hemolytic anemia 2/2 SCD 2/2 sepsis 2/2 likely CAP
Imaging
- CXR 07/07: Prominent pulmonary vascular markings, suspicious for interstitial pulmonary edema. No focal consolidation.
- CTAP 07/07: Small right pleural effusion; small spleen; moderate hepatomegaly.
Acute chest syndrome unlikely given lack of chest pain
Plan
Plan
#Sickle cell disease
#Sepsis 2/2 likely CAP
Continue antibiotics, per primary team
Supportive care with supplemental oxygen, incentive spirometry, judicious IVF, pain control as needed
Recommend simple transfusion if worsening symptoms or Hgb decreases >2 g/dL from baseline
Consider exchange transfusion if clinical status deteriorates or complications arise (e.g., acute chest, neurologic symptoms, renal involvement)
Patient states he intends to establish with [facility] outpatient for ongoing care for SCD
Patient History
History of Present Illness
Patient is a 65-year-old male on hospital day #3 with past medical history of sickle cell disease (SCD), CHF, and hypothyroidism who presented to the [facility] ED 07/07 with shortness of breath for approximately 1 week, as was fever, fatigue, chills, and
cough. On presentation, patient was febrile (103.2F) tachycardic (130s), tachypneic (30s), and hypoxic (90% on RA), which prompted treatment for suspected sepsis. Patient states he has a 'full-blown' SCD, which was diagnosed very early in life.
Patient states he has been hospitalized regularly for SCD, requiring blood transfusions, with the most recent being approximately 2 months ago. Patient moved to this area from [place] within the past week, and he previously received medical care
at the [facility] in [place]. Patient is unsure of his baseline hemoglobin. Patient takes vitamin C and an iron supplement, but no other medications for SCD. He thinks he may have been on SCD medications in the past, but they were stopped. Patient
denies history of prophylactic antibiotics or vaccinations for SCD. Patient has had priapism in the past, but no episodes recently. Denies history of kidney disease. Endorses 'a little' shortness of breath today, but it is improved relative to
recent days. Feels better overall than when he arrived to the hospital. Patient states this episode does not feel like his prior SCD episodes necessitating hospitalization. Denies current chest pain, F/F/C, abdominal pain, priapism, extremity
swelling or pain, weakness, numbness, dysarthria, or vision changes.
Past-Medical/Surgical History
Sickle cell disease, CHF, hypothyroidism, cholecystectomy, bowel obstruction (unspecified)
Patient Medication
�Medication �Instructions �Recorded �Confirmed �Last Taken �Type
ascorbic acid (vitamin C) 500 mg 500 mg PO DAILY Supplement 07/07/25 07/07/25 Unknown History
tablet (Vitamin C)
cholecalciferol (vitamin D3) 25 25 mcg PO DAILY Supplement 07/07/25 07/07/25 Unknown History
mcg (1,000 unit) tablet (Vitamin
D3)
ferrous sulfate 324 mg (65 mg 324 mg PO DAILY Supplement 07/07/25 07/07/25 07/07/25 History
iron) tablet,delayed release
furosemide 20 mg tablet (Lasix) 20 mg PO DAILY Fluid 07/07/25 07/07/25 07/07/25 History
Retention/Swelling
levothyroxine 125 mcg tablet 125 mcg PO DAILY Thyroid 07/07/25 07/07/25 07/07/25 History
(Synthroid)
spironolactone 25 mg tablet 25 mg PO DAILY Fluid 07/07/25 07/07/25 07/07/25 History
Retention/Swelling
tamsulosin 0.4 mg capsule (Flomax) 0.4 mg PO QPM Urinary Issue 07/07/25 07/07/25 07/06/25 History
Active Medications
Generic Name Dose Route Start Last Admin
Trade Name Freq PRN Reason Stop Dose Admin
Acetaminophen 650 mg 07/08/25 02:51
Acetaminophen 325 Mg Tablet PO 08/05/25 02:50
Q4HPRN PRN
headache,mild pain,fever>100.4
Ascorbic Acid 500 mg 07/08/25 08:00 07/09/25 10:03
Ascorbic Acid 500 Mg Tablet PO 08/05/25 07:59 500 mg
DAILY STEPHEN Administration
Ceftriaxone Sodium 1,000 mg 07/08/25 11:00 07/09/25 10:08
Ceftriaxone 1000 Mg / 10 Ml Vial IV 1,000 mg
Q24H STEHPEN Administration
Cholecalciferol 25 mcg 07/08/25 08:00 07/09/25 10:03
Cholecalciferol (Vitamin D3) 25 Mcg Tablet (1,000 Units) PO 08/05/25 07:59 25 mcg
DAILY STEPHEN Administration
Doxycycline Hyclate 100 mg 07/07/25 20:00 07/09/25 10:03
Doxycycline 100 Mg Capsule PO 100 mg
Q12 STEPHEN Administration
Enoxaparin Sodium 40 mg 07/07/25 18:00 07/08/25 16:59
Enoxaparin Sodium 40 Mg/0.4 Ml Syringe SC 08/04/25 17:59 40 mg
QPM STEPHEN Administration
Levothyroxine Sodium 125 mcg 07/08/25 06:00 07/09/25 05:33
Levothyroxine 125 Mcg Tablet PO 08/05/25 05:59 125 mcg
DAILY@0600 STEPHEN Administration
Melatonin 5 mg 07/09/25 22:00
Melatonin 5 Mg Tablet PO 08/06/25 21:59
HS STEPHEN
Metoprolol Succinate 25 mg 07/09/25 09:00 07/09/25 10:06
Metoprolol 25 Mg Extended Release Tablet PO 08/06/25 08:59 25 mg
BID STEPHEN Administration
Sodium Chloride 0 flush 07/07/25 16:00 07/09/25 10:08
Sodium Chloride 0.9% (Flush) Syringe IV 08/04/25 15:59 3 flush
PER PROTOCOL STEPHEN Administration
Spironolactone 25 mg 07/09/25 09:00 07/09/25 10:06
Spironolactone 25 Mg Tablet PO 08/06/25 08:59 25 mg
DAILY STEPHEN Administration
Sterile Water 10 ml 07/08/25 11:00 07/09/25 10:09
Sterile Water For Injection 10 Ml Vial IV 08/05/25 10:59 10 ml
Q24H STEPHEN Administration
Tamsulosin HCl 0.4 mg 07/07/25 18:00 07/08/25 16:48
Tamsulosin 0.4 Mg Capsule PO 08/04/25 17:59 0.4 mg
QPM STEPHEN Administration
Review of Systems
-
History Source: Patient
Constitutional: Denies Fever, Fatigue or Chills
EENT: Denies Blurry Vision or Decreased Vision
Respiratory: Reports Trouble Breathing (Mild, improved over recent days); Denies Cough or Hemoptysis
Cardiac: Denies Chest Pain
GI: Denies Abdominal Pain
Neuro: Denies Weakness, Numbness, Lightheadedness or Other (Denies dysarthria)
Physical Exam
-
General: No Apparent Distress; Negative Respiratory Distress, Pain, Fever or Chills
HEENT: Negative Jaundice
Pulmonary: Other (Faint crackles RLB)
GI: Soft, Distended and Other (Periumbilical surgical scar)
Musculoskeletal: No Cyanosis and No Edema
Extremities: Pulses Present and Phlebitic Signs
Neurology: Non Focal and No Lateralizing Symptoms
Skin: Warm, Dry and No Ecchymosis; Negative Jaundice
Psych: Calm
Labs
Lab Results
WBC 4.4 10^3/uL (4.8-10.8) L 07/09/25 07:47
RBC 2.45 10^6/uL (4.70-6.10) L 07/09/25 07:47
Hgb 8.3 g/dL (13.0-18.0) L 07/09/25 07:47
Hct 22.4 % (39.0-52.0) L 07/09/25 07:47
MCV 91.4 fL (80.0-94.0) 07/09/25 07:47
MCH 33.9 pg (27.0-31.0) H 07/09/25 07:47
MCHC 37.1 g/dL (33.0-37.0) H 07/09/25 07:47
RDW 21.6 % (11.5-14.5) H 07/09/25 07:47
Plt Count 244 10^3/uL (130-400) 07/09/25 07:47
MPV 9.6 fL (7.4-10.4) 07/09/25 07:47
Abs Immat Gran (auto) 0.0 10^3/uL (0-0.05) 07/09/25 07:47
Absolute Neuts (auto) 2.5 10^3/uL (1.4-6.5) 07/09/25 07:47
Absolute Lymphs (auto) 0.8 10^3/uL (1.2-3.4) L 07/09/25 07:47
Absolute Monos (auto) 0.5 10^3/uL (0.1-0.6) 07/09/25 07:47
Absolute Eos (auto) 0.5 10^3/uL (0-0.7) 07/09/25 07:47
Absolute Basos (auto) 0.0 10^3/uL (0-0.2) 07/09/25 07:47
Immature Gran % 0.5 % (0-0.5) 07/09/25 07:47
Neutrophils % 57.4 % (42.2-75.2) 07/09/25 07:47
Lymphocytes % 17.1 % (20.5-51.1) L 07/09/25 07:47
Monocytes % 12.3 % (1.7-9.3) H 07/09/25 07:47
Eosinophils % 11.8 % (0-6) H 07/09/25 07:47
Basophils % 0.9 % (0-2) 07/09/25 07:47
Creatinine 0.7 mg/dL (0.7-1.3) 07/09/25 07:47
Vital Signs
Vital Signs
Temp Pulse Resp BP Pulse Ox
97.3 F 85 12 123/77 92
07/09/25 11:12 07/09/25 11:12 07/09/25 11:12 07/09/25 11:12 07/09/25 11:12

Documented by User: Andrew Contreras MD 07/09/25 15:00
Plan
Plan
#Sickle cell disease
#Sepsis 2/2 likely CAP
Continue antibiotics, per primary team
Supportive care with supplemental oxygen, incentive spirometry, judicious IVF, pain control as needed
Recommend simple transfusion if worsening symptoms or Hgb decreases >2 g/dL from baseline
Consider exchange transfusion if clinical status deteriorates or complications arise (e.g., acute chest, neurologic symptoms, renal involvement)
Patient states he intends to establish with [facility] outpatient for ongoing care for SCD
Hematology Addendum:
Patient seen and evaluated and agree w/ resident note and plan as outlined
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
-no pain
-cont supportive care
-f/u outpt w/ [facility]
--- NOTE | 2025-07-09 12:36 | CM ---
Prescription pricing requested by Dr. Haywood
Empagliflozin - This requires a prior authorization before they will give a clemons because it is non-formulary drug.
For authorization phone [phone] or fax [phone] a script
Dapagliflozin
* Insurance prefers a script for [facility]. Pricing for this is as follows
5 mg tablet, 30 day supply Local pharmacy copay- $3, mail order 0$
10 mg tablet- same pricing as 5 mg tablet
Resources provided to pt for PCP, Gastroentrology, and cardiology
Plan: home with no needs
--- NOTE | 2025-07-09 14:04 | W.PN.HOSP.TC ---
Addendum entered and electronically signed by Rosas Haywood MD 07/09/25 21:43:
Attending Addendum-I saw and evaluated the patient. I reviewed the resident�s note and agree with findings and plan as documented in the resident�s note. Sub: Feels much more alert and energetic today. States still SOB but improved. No abd pain NV
CP palps fevers chills. Full 12 point ROS reviewed and negative except as documented Exam- vitals reviewed in EMR GEN-fatigued HEENT scleral icterus CV RRR no MRG Lungs crackles at bases abd soft distended hepatomegaly, neg McBurney point neg
Rovsing sign LE trace pitting edema B/L
Plan:
# Sepsis from CAP likely
- given 1 liter in ED
- cont Rocephin/Doxy
- blood cx NGTD
- CT chest/abd/pelvis- no PE, +hepatomegaly, mild free fluid in paracolic gutter
# Hyperbilirubinemia
- CT with hepatomegaly- LFT's WNL
- indirect- LDH(elevated), haptoglobin-P
- heme inout appreacited
# Sickle Cell Anemia / acute on chronic anemia
- tx for HB < 8 - transfuse 1 unit prbc 07/08
- obtain prior records
- retic count elevated
- exacerbated by infection
- avoid IVF due to vol overload
- pain control
- cont O2 prn for sats < 92%
- cont IS
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
- heme c/s appreciated- exchange transfusion if worsening
# Hepatomegaly
- chronic LFT's WNL
- ammonia WNL
- f/u as OP with MRI vs US elastography and GI
- FIB-4 unreliable due to SSD
# Acute Hypoxemic Resp failure
- resolved
# AE HFmrEF, NIMI
- trops trended down
- echo 07/08-Mildly reduced systolic function. Hypokinesis of the septal hernandez. Ejection fraction is 44%
- restart spironolactone
- start SGLT2i and toprol XL
- additional IV lasix x 1, monitor strict I and O, daily weights
- cards input appreciated
- check BMP in am
# Hypothyroid- TSH-WNL, cont levothyroxine
# BPH- cont flomax
DVTp-lovenox
CODE-FULL
Dispo DC home in am if stable
Time spent coordinating care, review of plan of care with resident, personally reviewed records in EMR, med rec, consults, notes, labs, radiology, d/w nursing,cards � 51 mins
Original Note:
Today's Communication/Plan
-
Start Toprol XL
Start Farxiga 10mg daily
IV Lasix 20mg x 1
Continue to wean O2 as tolerated
PT
Assessment / Plan
Assessment / Plan
Mr. Santoyo is a 65-year-old male with a history of sickle cell disease, CHF, and hypothyroidism who presented to the ED with shortness of breath at rest ongoing for 1 week and worsening, concerning acute HF exacerbation. His POA is his brother
Gregor. Mr. Santoyo recently moved from [place] and has not established care in the area.� In the ED, he was febrile up to 103.2F, tachycardic (130s), and tachypneic (30s).� He was given 1 dose of ceftriaxone, 1 L fluid, and placed on 3L nasal cannula (no
home O2 at baseline).� He was admitted to the hospitalist team for further management workup. Cardiology and hematology following.
CXR 07/07:
Vascular markings appear prominent, most suspicious for interstitial pulmonary edema.
Peripheral vascular ultrasound 07/07:
No sonographic evidence for right lower extremity deep venous thrombosis.
Abdomen/pelvis CT with chest PE study 07/07:
Nonvisualization of the appendix. Mild free fluid in the right paracolic gutter. Acute appendicitis cannot be excluded. Clinical and laboratory correlation recommended.
Mild AP window and bilateral groin lymphadenopathy. Nonspecific.
Small right pleural effusion.
Mild cardiomegaly
Moderate hepatomegaly. Heterogeneous appearance of the liver. This may be due to the phase of enhancement. Hepatocellular disease cannot be excluded. This would better be evaluated by MRI examination indicated clinically.
Too small to characterize hypodense right renal lesion likely a benign cyst.
Mild diffuse bladder wall thickening. This can be seen with cystitis or bladder outlet obstruction.
Mild prostate hypertrophy
Echo 07/08: Mildly reduced systolic function. Hypokinesis of the septal hernandez. Ejection fraction is 44%. Right ventricular cavity size is moderately dilated with preserved systolic function. Moderate MR. Mild AR. Moderate to severe TR. Estimated PASP
53 mmHg.
PLAN:
#Acute Hypoxemic Respiratory Failure, resolving
#Acute on chronic HFmREF
We do not have access to patient records from [place]. Will attempt to obtain.� CXR as above.� Crackles present on exam bilaterally.� proBNP 5260.�Trops trended down.
- From 3L NC to 1LNC on/off
--Wean as tolerated
- Troponins: 07/07 0.038, 0.036, 0.032, 0.030
- Echo as above
- Cardiology consulted,
--Hold home Lasix 20 mg
---Increase to Lasix 40mg daily on discharge
--Restart home spironolactone 25 mg
--Start Toprol XL 25mg BID
--Start Farxiga 10mg daily
---CM consulted; per CM: Insurer prefers we write a script for Farxiga. The clemons for a 5mg or 10mg tablet for 30 day supply is $3 copay at a local pharmacy and mail order is $0 copay.
--IV Lasix 20 mg x 1 07/07, x1 07/08, x1 07/09
- PT
#History of sickle cell disease
- Hem consult, appreciate recs
- Obtain prior records
- LDH 423H, f/u haptoglobin
- Hgb 7.7, s/p 1u pRBC on 07/08, repeat Hgb 8.3
-- Transfuse for Hgb<8
#Sepsis of unknown etiology
#Vomiting
#Cough
Patient was febrile, tachycardic, tachypneic on admission.� He had 1 episode of emesis on 07/06.� Currently asymptomatic from a GI standpoint.� Endorses a chronic cough that is now worse and productive.� UA pertinent for albumin, some WBC, and blood
otherwise unremarkable.
- s/p 1L IVF in ED; hold for volume overload
- Procalcitonin 1.15
- Lactate 1.2
- Legionella negative,
- LFT wnl
- Blood cltx NGTD
- COVID and flu negative
- IV ceftriaxone 1000 mg and doxycycline 100 mg twice daily
- CT C/A/P as above
#Hypocalcemia
#Hypoalbuminemia
Calcium 7.9 and albumin 3.2 on 07/08. Corrected calcium 8.1.
- CTM
#Hyperbilirubinemia
- CTM
#Hypothyroidism
- TSH 2.8
- Continue home levothyroxine 125 mcg
#BPH
- Continue Flomax
Diet: Cholesterol-lowering
CODE STATUS: Full
DVT prophylaxis: Lovenox 40 mg SC
Anticipated Discharge: 24 - 48 hours
Subjective/Interval History
-
Date of Service: July 09, 2025
- He reports feeling a bit better; he's on/off oxygen, off at the time of our conversation this morning. He reports feeling more comfortable from a SOB perspective but still feeling a bit volume overloaded in his belly. He asks about going home with
oxygen and shares that he has been having recurrent SOB once a month at home.
Objective Data
-
Labs:
Laboratory Results
07/09/25
07:47
WBC 4.4 L
Hgb 8.3 L
Hct 22.4 L
Plt Count 244
PT 16.4 H
INR 1.30
Sodium 137
Potassium 4.7
Chloride 108 H
Carbon Dioxide 24
BUN 16
Creatinine 0.7
Glucose 93
Calcium 8.0 L
Total Bilirubin 4.5 H
AST 39
ALT 20
Alkaline Phosphatase 83
Vital Signs:
Vital Signs
Temp Pulse Resp BP Pulse Ox
97.3 F 85 12 123/77 92
07/09/25 11:12 07/09/25 11:12 07/09/25 11:12 07/09/25 11:12 07/09/25 11:12
I&O
07/08/25 07/09/25 07/10/25
06:59 06:59 06:59
Intake Total 240 / 240 1210 / 1210 1495 / 1495
Output Total 725 / 725 2750 / 2750
Balance -485 / -485 -1540 / -1540 1495 / 1495
Physical Exam
-
General: Well Developed, Well Nourished, No Apparent Distress, Comfortable and Other (on RA)
HEENT: Normocephalic, Atraumatic and Moist Mucous Membranes
Respiratory: Clear to Auscultation and Non Labored Respirations
Cardiac: Regular Rhythm and S1/S2
GI: Soft, Nontender and Distended
Musculoskeletal: Clubbing
Skin: Warm and Dry
Neuro: AO x 3
Psych: Calm
[2025-07-09] MEDS: LOVENOX 40 MG SC (17:23)
[2025-07-09] MEDS: FLOMAX 0.4 MG PO (17:23)
[2025-07-09] MEDS: FARXIGA 10 MG PO (17:23)
[2025-07-09] MEDS: MELATONIN 5 MG PO (22:30)
[2025-07-10 03:25] VITALS: BP 105/69
[2025-07-10] MEDS: SYNTHROID 125 MCG PO (05:43)
[2025-07-10 06:00] VITALS: BMI 20.5
--- NOTE | 2025-07-10 07:29 | W.PN.HOSP.TC ---
Addendum entered and electronically signed by Catrachito Lynch MD 07/10/25 12:49:
DC home
Transition to po diuretics
Cards rec 20mg lasix
Original Note:
Today's Communication/Plan
-
Plan reviewed with attending
Transition to PO abx.
Home on 40mg Lasix
Follow up with PCP, polysomnograph tech, tube former operator
F/u with MRI abdomen for liver findings
Assessment / Plan
Assessment / Plan
Mr. Santoyo is a 65-year-old male with a history of sickle cell disease, CHF, and hypothyroidism who presented to the ED with shortness of breath at rest ongoing for 1 week and worsening, concerning acute HF exacerbation. His POA is his brother
Gregor. Mr. Santoyo recently moved from [place] and has not established care in the area.� In the ED, he was febrile up to 103.2F, tachycardic (130s), and tachypneic (30s).� He was given 1 dose of ceftriaxone, 1 L fluid, and placed on 3L nasal cannula (no
home O2 at baseline).� He was admitted to the hospitalist team for further management workup. Cardiology and hematology following.
CXR 07/07:
Vascular markings appear prominent, most suspicious for interstitial pulmonary edema.
Peripheral vascular ultrasound 07/07:
No sonographic evidence for right lower extremity deep venous thrombosis.
Abdomen/pelvis CT with chest PE study 07/07:
Nonvisualization of the appendix. Mild free fluid in the right paracolic gutter. Acute appendicitis cannot be excluded. Clinical and laboratory correlation recommended.
Mild AP window and bilateral groin lymphadenopathy. Nonspecific.
Small right pleural effusion.
Mild cardiomegaly
Moderate hepatomegaly. Heterogeneous appearance of the liver. This may be due to the phase of enhancement. Hepatocellular disease cannot be excluded. This would better be evaluated by MRI examination indicated clinically.
Too small to characterize hypodense right renal lesion likely a benign cyst.
Mild diffuse bladder wall thickening. This can be seen with cystitis or bladder outlet obstruction.
Mild prostate hypertrophy
Echo 07/08: Mildly reduced systolic function. Hypokinesis of the septal hernandez. Ejection fraction is 44%. Right ventricular cavity size is moderately dilated with preserved systolic function. Moderate MR. Mild AR. Moderate to severe TR. Estimated PASP
53 mmHg.
PLAN:
#Acute Hypoxemic Respiratory Failure, resolving
#Acute on chronic HFmREF
We do not have access to patient records from [place]. Will attempt to obtain.� CXR as above.� Crackles present on exam bilaterally.� proBNP 5260.�Trops trended down.
- From 3L NC to 1LNC on/off
--Wean as tolerated
- Troponins: 07/07 0.038, 0.036, 0.032, 0.030
- Echo as above
- Cardiology consulted,
--Hold home Lasix 20 mg
---Increase to Lasix 40mg daily
--Restart home spironolactone 25 mg
--Start Toprol XL 25mg BID
--Start Farxiga 10mg daily
---CM consulted; per CM: Insurer prefers we write a script for Farxiga. The clemons for a 5mg or 10mg tablet for 30 day supply is $3 copay at a local pharmacy and mail order is $0 copay.
--IV Lasix 20 mg x 1 07/07, x1 07/08, x1 07/09
- PT
#History of sickle cell disease
- Hem consult, appreciate recs
- Obtain prior records
- LDH 423H, f/u haptoglobin
- Hgb 7.7, s/p 1u pRBC on 07/08, repeat Hgb 8.3
-- Transfuse for Hgb<8
#Sepsis of unknown etiology
#Vomiting
#Cough
Patient was febrile, tachycardic, tachypneic on admission.� He had 1 episode of emesis on 07/06.� Currently asymptomatic from a GI standpoint.� Endorses a chronic cough that is now worse and productive.� UA pertinent for albumin, some WBC, and blood
otherwise unremarkable.
- s/p 1L IVF in ED; hold for volume overload
- Procalcitonin 1.15
- Lactate 1.2
- Legionella negative,
- LFT wnl
- Blood cltx NGTD
- COVID and flu negative
- IV ceftriaxone 1000 mg and doxycycline 100 mg twice daily transitioned to PO Cefdinir and Doxycycline
- CT C/A/P as above
#Hypocalcemia
#Hypoalbuminemia
Calcium 7.9 and albumin 3.2 on 07/08. Corrected calcium 8.1.
- CTM
#Hyperbilirubinemia
- CTM
#Hypothyroidism
- TSH 2.8
- Continue home levothyroxine 125 mcg
#BPH
- Continue Flomax
Diet: Cholesterol-lowering
CODE STATUS: Full
DVT prophylaxis: Lovenox 40 mg SC
Anticipated Discharge: Today
Subjective/Interval History
-
Date of Service: July 10, 2025
Pt reports feeling better this morning. Denies SOB, LE edema. Moving around, he wears 1L for comfort otherwise off NC and saturating appropriately.
Objective Data
-
Labs:
Laboratory Results
07/10/25
06:00
WBC Pending
Hgb Pending
Hct Pending
Plt Count Pending
Vital Signs:
Vital Signs
Temp Pulse Resp BP Pulse Ox
97.6 F 80 16 105/69 94
07/10/25 03:25 07/10/25 03:25 07/10/25 03:25 07/10/25 03:25 07/10/25 03:25
I&O
07/09/25 07/10/25 07/11/25
06:59 06:59 06:59
Intake Total 1210 / 1210 720 / 720
Output Total 2750 / 2750 2525 / 2525
Balance -1540 / -1540 -1805 / -1805
Physical Exam
-
General: No Apparent Distress, Comfortable and Appears Chronically Ill
HEENT: Normocephalic, Atraumatic and Moist Mucous Membranes; Negative Anicteric (scleral icterus )
Respiratory: Crackles (minimal basilar) and Non Labored Respirations
Cardiac: Regular Rhythm and S1/S2
GI: Soft and Nontender
Musculoskeletal: No Cyanosis and No Edema
Skin: Warm and Dry
Neuro: AO x 3, No Motor Deficits and Nonfocal/Grossly Intact
Psych: Calm
[2025-07-10 07:31] VITALS: BP 103/68
[2025-07-10] MEDS: TOPROL XL 25 MG PO (08:23)
[2025-07-10] MEDS: VIBRAMYCIN 100 MG PO (08:23)
[2025-07-10] MEDS: VITAMIN C 500 MG PO (08:23)
[2025-07-10] MEDS: ALDACTONE 25 MG PO (08:23)
[2025-07-10] MEDS: FARXIGA 10 MG PO (08:23)
[2025-07-10] MEDS: VITAMIN D3 (cholecalciferol) 25 MCG PO (08:24)
[2025-07-10 09:04] LABS: Hematocrit 22.6 % (39.0-52.0); Hemoglobin 8.4 g/dL (13.0-18.0); Mean Corp Hgb Conc. 37.2 g/dL (33.0-37.0); Mean Corpuscular Volume 91.9 fL (80.0-94.0); Nucleated Red Blood Cells % 2.2 % (-); Platelet Count 274 10^3/uL (130-400); Red Cell Dist. Width 21.6 % (11.5-14.5)
[2025-07-10 11:52] VITALS: BP 104/71
--- NOTE | 2025-07-10 12:07 | W.DCSUMMARY ---
Discharge Summary
Discharge Data
Date of Admission: 07/07/25
Date of Discharge: 07/10/25
-
Pending Results: No
Hospital Course
Mr. Santoyo is a 65-year-old male with history of sickle cell disease, CHF, and hypothyroidism who presented to the ED with shortness of breath at rest ongoing for 1 week and worsening, concerning for acute HG excarebation. His POA is his brother
Gregor. Mr. Santoyo recently moved from [place] and has not established care in the area. In the ED, he was febrile up to 103.2F, tachycardic (130s), and tachypneic (30s). He was given 1 dose of ceftriaxone, 1 L fluid, and placed on 3L nasal cannula (no
home O2 at baseline). He was admitted to the hospitalist team for further management workup.
Hospital course
#Shortness of breath
#Acute on chronic HFmrEF
#History of sickle cell disease
CXR 07/07: Vascular markings appear prominent, most suspicious for interstitial pulmonary edema.
Peripheral vascular ultrasound 07/07: No sonographic evidence for right lower extremity deep venous thrombosis.
We do not have access to patient's records from [place]. CXR as above. Crackles present on exam bilaterally. proBNP 5260. Patient's history and symptoms put him at high risk of PE and acute chest syndrome.
Weaned oxygen as tolerated. Trended troponin every 6 hours x 4 stable at 0.030. Held home Lasix 20 mg and spironolactone 25 mg for 2 days. IV Lasix 40 mg x 1 07/07, 20mg 07/08 and 07/09. Cardiology planned to slowly diurese in setting of SCD. Echo
demonstrated EF 44%. mild AR, mod-severe TR, moderate MR. ECG Sinus rhythm with first degree AV block. GDMT restarted 07/09, SGLT2 added.
Heme/onc recommended supportive care for SCD and transfusion for Hgb> 2g from baseline. Received 2 units pRBCs 07/08. Haptoglobin pending.
CT chest A/P demonstrated hetergenous hepatomegaly. HCC cannot be excluded. F/u MRI recommended. Bilirubin 4.5 (max 5.8).
#Sepsis of unknown etiology
#Vomiting
#Cough
Patient febrile, tachycardic, tachypneic. He had 1 episode of emesis. Otherwise symptomatic from a GI standpoint. Endorses a chronic cough that is now worse and productive. UA pertinent for albumin, some WBC, and blood otherwise unremarkable.
- Legionella negative, LFT WNL, LDH 423, lactate 1.2
- Blood cultures negative
- COVID and flu negative
- Started IV ceftriaxone 1000 mg and doxycycline 100 mg twice daily. Continued until transitioned to PO outpt with cefdinir and doxycycline.
- Procalcitonin 1.15+
#Hypothyroidism
- TSH with free T4. TSH 2.80
- Continue home levothyroxine 125 mcg
Diet: Cholesterol-lowering
CODE STATUS: Full
Discharge Plan
-
Patient Disposition: Home (Routine Discharge)
Discharge Diagnosis/Procedures: CAP, HFrEF exacerbation
Condition: Fair
Diet: As tolerated
Activity: No restrictions
Driving Restrictions: As prior to admission
Bathing Restrictions: None
Referrals:
[facility] [Outside] - in less than 1 week
Referral Note: Follow-up within a week of your hospitalization.
Radha Osorio CRNP [Specified Professional Personl, Cardiology] - 07/15/25 8:40 am
NONE,* [Family Provider, Internal Medicine]
Additional Discharge Medication Instructions: Follow up with the [place] lunchroom monitor (heart doctor) and cosmetics counter manager (blood doctor). Alert the cosmetics counter manager of your CT results regarding your liver. Recommended to follow up with MRI.
Primary care can be established at the [facility] residency clinic listed. Continue home lasix 20mg.
Prescriptions:
New
dapagliflozin propanediol 10 mg Tablet
10 mg PO DAILY 30 Days Qty: 30 0RF
doxycycline hyclate 100 mg Capsule
100 mg PO Q12 3 Days Qty: 7 0RF
cefdinir 300 mg capsule
300 mg PO BID Qty: 7 0RF
metoprolol succinate 25 mg Tablet Extended Release 24 Hr
25 mg PO BID Qty: 60 0RF
Continued
spironolactone 25 mg Tablet
25 mg PO DAILY
ascorbic acid (vitamin C) [Vitamin C] 500 mg Tablet
500 mg PO DAILY
tamsulosin [Flomax] 0.4 mg Capsule
0.4 mg PO QPM
levothyroxine [Synthroid] 125 mcg Tablet
125 mcg PO DAILY
cholecalciferol (vitamin D3) [Vitamin D3] 25 mcg (1,000 unit) Tablet
25 mcg PO DAILY
ferrous sulfate 324 mg (65 mg iron) Tablet,Delayed Release (Dr/Ec)
324 mg PO DAILY
furosemide [Lasix] 20 mg Tablet
20 mg PO DAILY Qty: 0 0RF
Discharge Orders:
Discharge Patient (As Directed); Ordered 07/10/25
Ordered By: Vivian Rubio
Discharge Date and Time
Discharge Date/Time: 07/10/25 14:27
Print Language: SWEDISH
--- NOTE | 2025-07-10 12:24 | W.PN.CD ---
Addendum entered and electronically signed by Chet Roach MD 07/10/25 13:09:
I saw and evaluated the patient, and I provided the substantive portion of the medical decision making.
I reviewed and agree with the note by PIO and it accurately reflects our care.
I personally performed the medical decision making of the this encounter and my assessment and plan is below:
65-year-old man with history of sickle cell disease, CHF, and hypothyroidism who presented with shortness of breath. Breathing has improved and he has no cardiovascular complaints.
Physical exam: RRR, no murmurs, clear lungs, trace lower extremity edema
Cardiomyopathy: Discharge on beta-ansley, SGLT2 inhibitor, spironolactone, and p.o. Lasix 20 mg daily. Assess for GERMAN/ARB/ARNI as outpatient. Addition currently limited by low blood pressures.
Remainder as per PIO note.
We will see him in the office for follow-up.
Original Note:
Today's Communication / Plan
-
Resume Lasix 20 mg PO daily and spironolactone 25 mg daily. SGLT2I added, as well as metoprolol. Assess for other GDMT after d/c. Follow-up in our office arranged
Impression / Plan
-
SOB: feels improved
-likely multifactorial- poss PNA, anemia, rnhdf-[id number] HFmEF, atelectasis
-received PRBC's, IV abx, and IV lasix
Cardiomyopathy, type unknown, with efleo-sh-fiwnpao HFmEF:
-Echo 07/08/25: Mildly reduced systolic function. Hypokinesis of the septal hernandez. Ejection fraction is 44%. Right ventricular cavity size is moderately dilated with preserved systolic function. Moderate MR. Mild AR. Moderate to severe TR. Estimated
PASP 53 mmHg.
-Toprol XL 25mg bid and [id number] started this admit
-home Aldactone resumed
-can assess for Entresto as OP
-awaiting records for prior LVEF, and prior ischemic evaluation- they were officially requested, but still not in chart
Valvular HD:Moderate MR. Mild AR. Moderate to severe TR. Estimated PASP 53 mmHg.
-volume plan as noted
Mildly prolonged QT
-avoid QTC prolonging agents
Sickle Cell Disease:
-management per primary
-heme has been on the case
Anemia:
-s/p PRBC
-monitor
Abnormal troponin:
-acute, non-ischemic myocardial injury in setting of acute illness as above
-no CP
Physical Exam
Vital Signs/Labs
Vital Signs
Temp Pulse Resp BP Pulse Ox
97.7 F 79 18 104/71 99
07/10/25 11:52 07/10/25 11:52 07/10/25 11:52 07/10/25 11:52 07/10/25 11:52
07/09/25 07/10/25 07/11/25
06:59 06:59 06:59
Actual Weight 70.987 kg 70.449 kg
07/10/25 08:00
07/09/25 07:47
PT 16.4 Sec (11.4-14.6) H 07/09/25 07:47
INR 1.30 07/09/25 07:47
Magnesium 1.8 mg/dl (1.6-2.3) 07/07/25 16:03
07/07/25
10:17
Vdh-Y-Gixorhfpaxm Pept 5260
LAB Results
07/07/25 07/07/25 07/07/25
16:03 21:37 22:45
Troponin I 0.038 H* Cancelled 0.036 H*
07/08/25 07/08/25
04:15 09:55
Troponin I 0.032 0.030
Physical Exam
Constitutional: No acute distress
EENT: Anicteric
Cardiovascular: Rhythm & rate is regular
Respiratory: Respiratory effort normal and Lungs clear to auscul.
Neuro/Psych: AO x 3
Data Reviewed
-
Date of Service: July 10, 2025
EKG: Other (SR)
Labs: Labs Reviewed by me
== END 2025-07-10 14:27 | disposition home or self-care (01) | DRG 871 ==
LOC: 4 EAST ACU 14:10
PROVIDERS: ADMITTING PHYSICIAN Family Medicine; ATTENDING PHYSICIAN Hospitalist; CONSULT PHYSICIAN Internal Medicine Cardiovascular Disease; EMERGENCY PHYSICIAN Emergency Medicine; OTHER PHYSICIAN Internal Medicine Hematology & Oncology
DX: A41.9 Sepsis, unspecified organism (principal); I50.23 Acute on chronic systolic (congestive) heart failure; J96.01 Acute respiratory failure with hypoxia; J18.9 Pneumonia, unspecified organism; I5A Non-ischemic myocardial injury (non-traumatic); I42.9 Cardiomyopathy, unspecified; I47.10 Supraventricular tachycardia, unspecified; J98.11 Atelectasis; D57.1 Sickle-cell disease without crisis; D63.8 Anemia in other chronic diseases classified elsewhere; E80.6 Other disorders of bilirubin metabolism; E03.9 Hypothyroidism, unspecified; R94.31 Abnormal electrocardiogram [ECG] [EKG]; I08.3 Combined rheumatic disorders of mitral, aortic and tricuspid valves; R16.0 Hepatomegaly, not elsewhere classified; Z79.899 Other long term (current) drug therapy
CPT/HCPCS: 71045; 71275; 74177; 80053; 80076; 81003; 81015; 82140; 83010; 83605; 83615; 83735; 83880; 84145; 84443; 84484; 85018; 85025; 85045; 85610; 86850; 86900; 86901; 86920; 87040; 87449; 87502; 87811; 93005; 93306; 93971; 96361; 96374; 97162; 99291; P9016; Q9967